=== PATIENT | female | born 1970 | race Two or more races ===

== ENCOUNTER 2024-04-06 12:37 | Day surgery (SDC) | payer MEDICAID, SELFPAY ==
--- NOTE | 2024-04-06 12:45 | FL_ITS ---
[address] [address] Patient Name: ENEDINA CARR MRN: [id number] date: 1970 Sex: F Assigned Patient Location: MRI Current Patient Location: MRI Accession/Order Number: [id number] Exam Date: 04/06/2024 13:00 Report Date: 04/06/2024 14:33 At the request of: DESTINY WILLARD Procedure: FL guided needle placement EXAMINATION: FL arthrogram hip, FL guided needle placement HISTORY: left hip pain FLUORO DOSE: mGy Reference air kerma (Ka,r) COMPARISON: No relevant comparison available. TECHNIQUE: An arthrogram was performed under fluoroscopic guidance using non-ionic contrast material in the usual sterile manner after obtaining informed consent. Standard level fluoroscopic mode of operation utilized. FINDINGS: JOINT: Left hip NEEDLE: 25 gauge, 3.5 spinal needle. MEDICATION: 2 mL buffered 1% lidocaine for subcutaneous anesthesia. Approximately 8 mL injected into joint space consisting of a mixture of 5 mL Omnipaque-240, 5 mL 1% Xylocaine and 0.2 mL Dotarem. TECHNIQUE: Anterior approach under fluoroscopic guidance. CLINICAL: Decrease in pain following the injection. COMPLICATIONS: None. OTHER: Negative. FL/FL guided needle placement IMPRESSION: 1. Technically successful arthrogram without complication. 2. Please see separate MRI arthrogram report. Electronically authenticated by: JOHN MARTINEZ Date: 04/06/2024 14:33
--- NOTE | 2024-04-06 12:45 | FL_ITS ---
[address] [address] Patient Name: ENEDINA CARR MRN: [id number] date: 1970 Sex: F Assigned Patient Location: MRI Current Patient Location: MRI Accession/Order Number: [id number] Exam Date: 04/06/2024 13:00 Report Date: 04/06/2024 14:33 At the request of: DESTINY WILLARD Procedure: FL arthrogram hip EXAMINATION: FL arthrogram hip, FL guided needle placement HISTORY: left hip pain FLUORO DOSE: mGy Reference air kerma (Ka,r) COMPARISON: No relevant comparison available. TECHNIQUE: An arthrogram was performed under fluoroscopic guidance using non-ionic contrast material in the usual sterile manner after obtaining informed consent. Standard level fluoroscopic mode of operation utilized. FINDINGS: JOINT: Left hip NEEDLE: 25 gauge, 3.5 spinal needle. MEDICATION: 2 mL buffered 1% lidocaine for subcutaneous anesthesia. Approximately 8 mL injected into joint space consisting of a mixture of 5 mL Omnipaque-240, 5 mL 1% Xylocaine and 0.2 mL Dotarem. TECHNIQUE: Anterior approach under fluoroscopic guidance. CLINICAL: Decrease in pain following the injection. COMPLICATIONS: None. OTHER: Negative. FL/FL arthrogram hip IMPRESSION: 1. Technically successful arthrogram without complication. 2. Please see separate MRI arthrogram report. Electronically authenticated by: JOHN MARTINEZ Date: 04/06/2024 14:33
--- NOTE | 2024-04-06 12:47 | MR_ITS ---
The [address] [address] Patient Name: ENEDINA CARR MRN: [facility]:[id number] date: 1970 Sex: F Assigned Patient Location: MRI Current Patient Location: MRI Accession/Order Number: [id number] Exam Date: 04/06/2024 13:46 Report Date: 04/07/2024 15:14 At the request of: DESTINY WILLARD Procedure: MR hip LT w con EXAM: MR hip LT w con REASON FOR EXAM: left hip pain. TECHNIQUE: Multiplanar, multisequence imaging of the left hip was performed following the uneventful intra-articular administration of contrast. See separate arthrogram report for procedure description COMPARISON: Arthrogram images same date. FINDINGS: On small [id number] imaging of the left hip, left femur is well seated within the acetabulum. No fracture or AVN. Diffuse low-grade chondrosis is present. No high-grade chondrosis or subchondral marrow changes. There is mild perceived bony overgrowth of the superior lateral femoral head neck junction. There is probable degenerative tearing the anterior and anterior superior labrum. No intra-articular body. Mild left gluteal insertional and proximal left hamstring tendinosis is present without tear. On large [id number] imaging, the bone marrow signal is normal. Mild loss of normal intervertebral disc space height and signal of the L5-S1 level. This is incompletely characterized. The sacroiliac joints appear congruent. The pubic symphysis is congruent. The right femur is well seated within the acetabulum without fracture or AVN. Mild right gluteal insertional tendinosis. Mild proximal right hamstring tendinosis. Limited evaluation the pelvic viscera is unremarkable. MR/MR hip LT w con IMPRESSION: 1. Mild left hip osteoarthritis with probable anterior and anterior superior labral degeneration. No fracture or AVN. 2. Mild bilateral gluteal insertional and proximal hamstring tendinosis without tear Electronically authenticated by: DINESH YA Date: 04/07/2024 15:14
[2024-04-06] MEDS: LIDOCAINE HCL 15 ML, SODIUM BICARBONATE 2 MEQ INJ (13:20)
[2024-04-06] MEDS: TRIAMCINOLONE ACETONIDE 40 MG/ML VIAL INJ (13:20)
--- NOTE | 2024-04-06 13:59 | SUR.PREOP ---
04/02/24 Spoke with pt to reschedule date, time. Reviewed prep and procedure.
== END 2024-04-06 13:40 | disposition home or self-care (01) ==
LOC: MRI 12:39
PROVIDERS: Radiology Diagnostic Radiology; PCP Internal Medicine; Visit Provider Personal Emergency Response Attendant
DX: M25.552 Pain in left hip (principal); M16.12 Unilateral primary osteoarthritis, left hip
CPT/HCPCS: 27093; 73722; 77002; A9575; J3301; Q9966